=== PATIENT | male | born 1960 | race Caucasian/White ===

== ENCOUNTER 2018-07-13 15:30 | Inpatient (IN) ==
[2018-07-13] MEDS ORDERED: ZOFRAN IV PRN (16:59)
[2018-07-13] MEDS ORDERED: NS 1,000 ML IV SCH (17:00)
[2018-07-13 17:56] LABS: BASO# 0.01 X1000 (0.0-0.2); BASO% 0.2 % (0.0-0.8); EOS# 0.14 X1000 (0.0-0.7); EOS% 2.2 % (0.0-10.0); HEMATOCRIT 37.4 % (42.0-52.0); HEMOGLOBIN 13.2 g/dL (14.0-18.0); LYMPH# 1.72 X1000 (1.2-3.4); LYMPH% 26.8 % (20.5-51.1); MCH 33.7 PG (27-31); MCHC 35.3 g/dL (33-37); MCV 95.4 FL (81-99); MONO# 0.52 X1000 (0.11-0.59); MONO% 8.1 % (1.7-9.3); MPV 12.3 FL (7.4-10.4); NEUT# 4.03 X1000 (1.4-6.5); NEUT% 62.7 % (42.2-75.2); PLT 166 X1000 (130-400); RBC 3.92 XMIL (4.7-6.1); RDW 13.4 % (11.5-14.5); WBC 6.42 X1000 (4.8-10.8)
[2018-07-13 18:15] LABS: ALB/GLOB RATIO 1.3; ALBUMIN 3.7 g/dL (3.5-5.0); CALCIUM 9.4 mg/dL (8.8-10.2); CREATININE 3.4 mg/dL (0.7-1.2); POTASSIUM 5.4 mmol/L (3.5-5.1); TOTAL BILIRUBIN 0.55 mg/dL (0.20-1.00); TOTAL PROTEIN 6.5 g/dL (6.3-8.3)
[2018-07-13 18:30] LABS: FREE T4 1.67 ng/dL (0.93-1.70); TSH 0.04 uIUmL (0.27-4.20)
[2018-07-13] MEDS ORDERED: NS 500 ML IV ONE (19:39)
[2018-07-13] MEDS ORDERED: TYLENOL PO PRN (19:43)
[2018-07-13] MEDS: LOFIBRA PO SCH (21:24)
--- NOTE | 2018-07-13 21:39 | HISTORY AND PHYSICAL ---
PRIMARY CARE PHYSICIAN: Dr. iZ Man. CHIEF COMPLAINT: Diarrhea and near syncope. HISTORY OF PRESENT ILLNESS: A 57-year-old white male with a very complicated past medical history presents for evaluation of above-mentioned symptoms. Pertinent history of present illness began in May. At that time, patient was diagnosed with symptoms concerning for ischemic heart disease. The patient was referred for cardiology testing and subsequently required stent placement on June 03. At that time, medications were adjusted including increasing atorvastatin and adding Plavix therapy. The patient followed up with me in approximately 1 week. At that time, he complained of diarrhea beginning soon after stent placement. The patient also was noted to have significant upper respiratory symptoms. The patient was started on doxycycline. Upper respiratory illness improved. Unfortunately, diarrhea has persisted. Over the course of the last week, this has further increased. The patient describes stool as liquid and malodorous. He has had significant weight loss. Over the course of the last several days his blood pressure has been running significantly low. He has had multiple near syncopal episodes. He denies fevers, chills, nausea, vomiting, shortness of breath, chest discomfort, palpitations, hematochezia, melena, dysuria, hematuria, and pyuria. PAST MEDICAL HISTORY: 1. Abnormal electrocardiogram with nonspecific QRS widening and first-degree AV block. 2. Allergic rhinitis. 3. Multiple nevi. 4. Chronic cervical spine pain. 5. Colonic diverticulosis. 6. Longstanding tobacco use 7. Depression. 8. Diabetes. 9. Insomnia. 10. Transaminitis secondary to nonalcoholic fatty liver disease. 11. Reflux disease. 12. Hypertension. 13. Gout. 14. Ischemic heart disease. 15. Low HDL. 16. Chronic low back pain. 17. Obstructive sleep apnea. 18. History of thyroid nodule with negative uptake. 19. Osteoarthritis. 20. History of colonic polyps. 21. Hypertriglyceridemia. 22. Family history of ischemic heart disease. 23. Urinary frequency secondary to benign prostatic hypertrophy and bladder spasms. CURRENT MEDICATIONS: 1. Allopurinol 100 mg daily. 2. Amlodipine 5 mg twice daily. 3. Aspirin 81 mg daily. 4. Atorvastatin 20 mg at bedtime. 5. Bystolic 10 mg daily. 6. Duloxetine 60 mg daily. 7. Fenofibrate 160 mg at bedtime. 8. Flomax 0.4 mg daily. 9. Fluticasone nasal spray as needed. 10. Lisinopril/hydrochlorothiazide 20/12.5 two tablets daily. 11. Metamucil as needed. 12. [place] 7.5/325 twice daily. 13. Plavix 75 mg daily. 14. ProAir HFA as needed. ALLERGIES: Patient states he is allergic to Imdur which caused headaches and Mirapex which caused myalgias. SOCIAL HISTORY: The patient began smoking at age 18. He has averaged between 1/2 and 1 pack per day since that time. He denies alcohol or illicit drug use. He is on disability. He does not exercise routinely. FAMILY HISTORY: Patient's father passed at age 68 secondary to complications of coronary artery disease. He had a history of hyperlipidemia and hypertension. Patient's mother passed at age 73 secondary to complications of systemic lupus erythematosus. Two brothers passed secondary to acute myocardial infarctions at age 46 and 56. Another brother has end-stage renal disease. REVIEW OF SYSTEMS: A 12 point review of systems was performed. Pertinent positives and negatives are noted in history present illness. PHYSICAL EXAMINATION: Temperature 97.7 degrees, heart rate 61, respirations 16, blood pressure is 95/63. GENERAL: No acute distress. HEENT: Normocephalic, atraumatic. Pupils equal, round, reactive to light. Extraocular muscles intact. Sclerae anicteric. [place] conjunctivae. Oral and nasopharynx clear without exudate. NECK: Supple. No lymphadenopathy. No thyromegaly. No bruits auscultated. CARDIOVASCULAR: Regular rate and rhythm. No significant murmurs, rubs, or gallops. PULMONARY: Clear to auscultation bilaterally. ABDOMEN: Soft, nontender, nondistended. Positive bowel sounds. EXTREMITIES: Moves all extremities well. No significant clubbing, cyanosis, or edema. NEUROLOGIC: Cranial nerves 2-12 grossly intact. Motor and sensory grossly intact. PSYCHOLOGIC: Appropriate. LABORATORY DATA: White blood cell count 6.42, hemoglobin 13.2, hematocrit 37.4, platelet count 166,000. Sodium 130, potassium 5.4, chloride 100, bicarb 17, BUN 87, creatinine 3.4, glucose 163, calcium 9.4, total bilirubin 0.55, total protein 6.5, albumin 3.7, alkaline phosphatase 59, AST 72, ALT 82, TSH 0.04, free T4 is 1.67. ASSESSMENT AND PLAN: A 57-year-old white male with past medical history as noted presents for evaluation of intractable diarrhea and associated hypotension. He has had multiple near syncopal episodes. Laboratory data is significant for acute renal failure as well as hyperthyroid state. Patient will be admitted to the hospital for full evaluation and management of each of these conditions. 1. Admit to General Medicine. 2. Intractable diarrhea-question is raised as to the etiology. Symptoms started after stent placement and medication adjustments. These included increasing atorvastatin and starting Plavix therapy. Medication associated diarrhea is to be considered. Additionally, patient is at risk for Clostridium difficile as he has had antibiotics in the recent past. The patient's laboratory data is also significant for a suppressed TSH thus hyperthyroid may be playing a role. Additional intracolonic pathology will be also considered. We will start patient on IV fluids for replacement. We will hold patient's atorvastatin therapy. At this point, the risk of holding Plavix outweighs the benefits. We will check stool studies, including C difficile toxin, culture, and fecal leukocytes. Depending on patient's response, we will consider whether Gastroenterology consultation is appropriate. 3. Acute renal failure-patient's BUN and creatinine are significantly elevated. This likely is a consequence of his intractable diarrhea and volume loss. We will hold patient's ADRIEN inhibitor and diuretics. We will start patient on aggressive but cautious hydration. We will follow this closely. 4. Hypotension-this likely is a consequence of hypovolemia. We will aggressively but cautiously hydrate. We will hold the patient's antihypertensive agents. We will follow this. 5. Coronary artery disease-the patient has a recent diagnosis requiring stent placement. As above, we will continue his aspirin and Plavix. We will hold antihypertensive agents for now. We will continue fenofibrate, but hold atorvastatin. 6. Type 2 diabetes-we will treat patient with sliding scale insulin. 7. Suppressed TSH/hyperthyroidism-we will check a thyrotropin receptor antibody. We will determine if further intervention is warranted. 8. Chronic pain-at this point, continuing [place] is contraindicated secondary to hypotensive state. We will resume once able. 9. Fluid, electrolytes, nutrition. We will monitor electrolytes. Normal saline bolus followed by 75 mL an hour. Cardiac prudent diet. 10. Prophylaxis. Patient will be placed on SCDs. cc: Zi aMn MD
[2018-07-13] MEDS: NS 1,000 ML IV SCH (22:52)
[2018-07-14 02:37] LABS: URINE SOURCE CLEAN CATCH
[2018-07-14 02:50] LABS: BILIRUBIN URINE NEGATIVE (NEGATIVE); BLOOD URINE NEGATIVE (NEGATIVE); COLOR YELLOW; GLUCOSE URINE NEGATIVE (NEGATIVE); KETONE URINE NEGATIVE (NEGATIVE); LEUKOCYTES URINE NEGATIVE (NEGATIVE); NITRITE URINE NEGATIVE (NEGATIVE); PH URINE 5.5; PROTEIN URINE 100 mg/dL (NEGATIVE); SP GRAVITY URINE 1.008; TURBIDITY URINE CLEAR (CLEAR); UR EPITHELIAL CELLS <10 /HPF (<10); URINE BACTERIA NEGATIVE /HPF; URINE RBC <10 /HPF (<10); URINE WBC <10 /HPF (<10); UROBILINOGEN URINE NORMAL (NORMAL)
[2018-07-14 07:27] LABS: ALB/GLOB RATIO 1.5; ALBUMIN 3.9 g/dL (3.5-5.0); CALCIUM 9.1 mg/dL (8.8-10.2); CREATININE 3.2 mg/dL (0.7-1.2); POTASSIUM 4.9 mmol/L (3.5-5.1); TOTAL BILIRUBIN 0.55 mg/dL (0.20-1.00); TOTAL PROTEIN 6.5 g/dL (6.3-8.3)
[2018-07-14] MEDS: NS 1,000 ML IV SCH (08:44)
[2018-07-14] MEDS: ASPIRIN PO SCH (08:45)
[2018-07-14] MEDS: PLAVIX PO SCH (08:45)
[2018-07-14] MEDS: CYMBALTA PO SCH (08:45)
--- NOTE | 2018-07-14 20:07 | PROGRESS NOTE ---
DATE: 07/14/2018 SUBJECTIVE: The patient was admitted yesterday with intractable diarrhea, hypotension and acute renal failure. The patient was started on aggressive but cautious hydration. Medication adjustments including holding his atorvastatin therapy were made. Stool studies overnight suggested a negative Clostridium difficile toxin. Fecal white blood cells were rare. Occult blood was present. This morning the patient noted feeling somewhat improved. He noted a mild increase in energy. He had several bowel movements overnight. Through the course of the day, the patient was continued on supportive care. This evening, the patient states he is feeling further improved. He has not had a bowel movement since this morning. His blood pressure has improved considerably. He denies fevers, chills, nausea, vomiting, shortness of breath or chest discomfort. Oral intake has been adequate. OBJECTIVE: T-max 98.5 degrees, heart rate 58 to 65, respirations 18 to 20, blood pressure 78 to 121 over 49 to 69. General: Well nourished, well developed. No acute distress. Cardiovascular: Regular rate and rhythm. No significant murmurs, rubs or gallops. Pulmonary: Clear to auscultation bilaterally. Abdomen soft, nontender, nondistended. Positive bowel sounds. Extremities: Moves all extremities well. No significant clubbing, cyanosis or edema. Dermatologic evaluation reveals no evidence of rash. LABORATORY DATA: Sodium 129, potassium 4.9, chloride 100, bicarbonate 19, BUN 89, creatinine 3.2, glucose 87, calcium 9.1, total bilirubin 0.55, total protein 6.5, albumin 3.9, alkaline phosphatase 59, AST 75, ALT 86. ASSESSMENT AND PLAN: 1. Intractable diarrhea: As described above, Clostridium difficile toxin returned negative. Fecal white blood cells returned rare. Occult blood was present. At this point the differential diagnosis remains broad. We will continue to follow cultures. We will also remain aware that atorvastatin may be playing a role. With holding atorvastatin, his diarrhea has improved. We will also remain aware that hyperthyroidism also is on the differential. For now we will continue supportive care. We will treat additional diagnoses as described below. 2. Acute renal failure: The patient's creatinine has improved slightly. BUN, however, remains significantly elevated. We will continue the patient on intravenous fluids. We will continue to hold angiotensin-converting enzyme inhibitor and diuretics. Urine output is adequate. 3. Hypotension: The patient's antihypertensive agents have been held. With hydration, this is improving. 4. Coronary artery disease: The patient has significant disease. He is status post recent stenting. We will continue his aspirin and Plavix. Atorvastatin has been held, as I am concerned this may be precipitating diarrhea. 5. Type 2 diabetes: We will continue the patient on sliding scale insulin. 6. Suppressed TSH/hyperthyroidism: Thyrotropin receptor antibody is pending. We will determine if further intervention is warranted. 7. Chronic pain: [place] is contraindicated in the setting of hypotension. We will plan to resume this once able. 8. Prophylaxis: The will be continued on sequential compression devices. 9. Disposition: At this point, the patient continues to require senior living care in a hospital setting. We will plan discharge home once appropriate. cc: Zi Man MD
[2018-07-14] MEDS: LOFIBRA PO SCH (21:12)
[2018-07-15 06:56] LABS: BASO# 0.02 X1000 (0.0-0.2); BASO% 0.3 % (0.0-0.8); EOS# 0.15 X1000 (0.0-0.7); EOS% 2.3 % (0.0-10.0); HEMATOCRIT 37.5 % (42.0-52.0); IMM GRAN# 0.02 X1000 (0.0-0.04); IMM GRAN% 0.3 % (0.0-0.5); LYMPH# 2.08 X1000 (1.2-3.4); LYMPH% 31.7 % (20.5-51.1); MCH 32.5 PG (27-31); MCHC 34.7 g/dL (33-37); MCV 93.8 FL (81-99); MONO# 0.74 X1000 (0.11-0.59); MONO% 11.3 % (1.7-9.3); MPV 12.1 FL (7.4-10.4); NEUT# 3.55 X1000 (1.4-6.5); NEUT% 54.1 % (42.2-75.2); PLT 140 X1000 (130-400); RDW 13.4 % (11.5-14.5); WBC 6.56 X1000 (4.8-10.8)
[2018-07-15 07:28] LABS: ALB/GLOB RATIO 1.4; CALCIUM 9.5 mg/dL (8.8-10.2); CREATININE 2.1 mg/dL (0.7-1.2); POTASSIUM 5.9 mmol/L (3.5-5.1); TOTAL BILIRUBIN 0.58 mg/dL (0.20-1.00); TOTAL PROTEIN 6.9 g/dL (6.3-8.3)
[2018-07-15] MEDS: ASPIRIN PO SCH (09:01)
[2018-07-15] MEDS: CYMBALTA PO SCH (09:01)
[2018-07-15] MEDS: PLAVIX PO SCH (09:01)
[2018-07-15] MEDS: NS 1,000 ML IV SCH ×5 (09:05→22:44)
[2018-07-15 09:36] LABS: ALB/GLOB RATIO 1.5; ALBUMIN 4.3 g/dL (3.5-5.0); CALCIUM 9.6 mg/dL (8.8-10.2); CREATININE 1.9 mg/dL (0.7-1.2); POTASSIUM 5.5 mmol/L (3.5-5.1); TOTAL BILIRUBIN 0.57 mg/dL (0.20-1.00); TOTAL PROTEIN 7.1 g/dL (6.3-8.3)
--- NOTE | 2018-07-15 12:50 | Diag Imaging Result Doc PS360 ---
EXAM: US ABDOMEN-COMPLETE HISTORY: Transaminitis/ persistent diarrhea TECHNIQUE: Abdominal ultrasound COMPARISON: None. FINDINGS: Normal pancreatic body. Pancreatic head and tail are obscured. No abdominal aortic aneurysm. Normal inferior vena cava. There is fatty infiltration of the liver. Normal gallbladder. No stones. The common bile duct measures 5 mm. Normal kidneys. No hydronephrosis. No ascites. Normal spleen. IMPRESSION: Fatty infiltration of the liver Electronically signed by Soy Boucher 07/15/2018 12:48 PM
[2018-07-15 16:30] LABS: ALB/GLOB RATIO 1.5; CALCIUM 9.4 mg/dL (8.8-10.2); CREATININE 1.7 mg/dL (0.7-1.2); POTASSIUM 5.3 mmol/L (3.5-5.1); TOTAL BILIRUBIN 0.59 mg/dL (0.20-1.00); TOTAL PROTEIN 6.7 g/dL (6.3-8.3)
--- NOTE | 2018-07-15 17:55 | GASTROENTEROLOGY CONSULTATION ---
DATE: 07/15/2018 REASON FOR CONSULTATION: Diarrhea, elevated liver function tests. HISTORY OF PRESENT ILLNESS: This is a 57-year-old male who has been seen once by Dr. Griffiths for a colonoscopy. Had a colonoscopy in May of 2017 that showed colon polyps and diverticulosis. Pathology has shown hyperplastic polyps and he was recommended to have a follow- up colonoscopy in 5 years. Patient reports onset of his current symptoms started mid-May. He was admitted to the hospital at [facility] and had cardiovascular stent placed. He was started on medications including cholesterol medication, aspirin, and Plavix. Patient states not long after this he started having diarrhea that has progressively worsened. He is reported about a 50 pounds weight loss since May. Not long after a stent placement he also had an upper respiratory infection and was treated with antibiotics. Patient had reported approximately 5 to 6 loose stools daily but over the last week, it has worsened and at 1 point he had up to 15 loose stools. He denies blood or mucus in the stool. No reported fever. No reported nausea and vomiting. Reports some abdominal cramping. He had reported near syncopal episodes. On evaluation, he had low blood pressure and abnormal kidney function. Patient was also noted to have elevated liver function tests, including AST and ALT with a normal bilirubin and alkaline phosphatase. PAST MEDICAL HISTORY: Coronary artery disease with recent cardiovascular stents placed in May of 2018, diabetes, depression, GERD, hypertension, gout, chronic pain, obstructive sleep apnea, osteoarthritis, hypertriglyceridemia, reported history of elevated liver function tests in the past with diagnosis of fatty liver disease. PAST SURGICAL HISTORY: He has had knee surgeries x2, shoulder surgery, neck surgery, back surgery, cardiovascular stents placed in May of 2018. ALLERGIES: Mirapex causing swelling. HOME MEDICATIONS: Allopurinol 100 mg daily, amlodipine 5 mg twice a day, aspirin 81 mg daily, Atorvastatin 20 mg every night, Bystolic 10 mg daily, duloxetine 60 mg daily, fenofibrate 160 mg at night, Flomax 0.4 mg daily, fluticasone nasal spray as needed, lisinopril/hydrochlorothiazide 20/12.5 2 tablets daily, Metamucil as needed, [place] 7.5/325 mg twice daily, Plavix 75 mg daily, ProAir inhaler as needed. SOCIAL HISTORY: Positive for tobacco use, 1/2 to 1 pack daily. Denies alcohol use. He is on disability. He is . FAMILY HISTORY: Father at 68 secondary to coronary artery disease. Mother at 73 related to lupus. He has 2 brothers that passed secondary to acute myocardial infarctions at age 46 and 56. He has 1 brother with end-stage renal disease. REVIEW OF SYSTEMS: Per history of present illness. PHYSICAL EXAMINATION: Vital Signs: Temperature 98.4 degrees, pulse 64, respirations 20, blood pressure 125/56. General: Patient is awake, alert, in no acute distress. His is at the bedside. HEENT: Normocephalic, atraumatic. Pupils equal, round, reactive to light. Sclerae nonicteric. Cardiovascular: Regular rate and rhythm. Respiratory: Lung sounds essentially clear bilaterally. Abdomen: Soft. Positive bowel sounds. Nontender. Extremities: No lower extremity edema noted. DIAGNOSTIC RESULTS: Laboratory: Hematology: WBC 6.56, hemoglobin 13.0, hematocrit 37.5, MCV 93.8, platelet 140,000. Chemistry: Sodium 136, potassium 5.5, chloride 108, CO2 16, BUN 69, creatinine 1.9, glucose 100. Total bilirubin 0.57, AST 111, ALT 114, alkaline phosphatase 65. TSH 0.04, free T4 1.67. Immunology studies: Thyrotropin receptor antibody less than 1.0. Abdominal ultrasound showed fatty infiltration of the liver, otherwise no acute findings. ASSESSMENT AND PLAN: 1. Diarrhea. 2. Coronary artery disease with recent cardiovascular stents placed in May. Patient's diarrhea started after stent placement. Currently they are holding his atorvastatin. 3. Acute renal failure. The patient had elevated BUN and creatinine which has improved with IV fluids. 4. Hypotension with near syncopal episodes. The patient antihypertensive medications have been held. 5. Low thyroid stimulating hormone with normal free T4. Thyrotropin receptor antibody was normal. Continue to follow per Dr. Man. 6. Elevated AST and ALT, ultrasound findings of fatty liver disease. We will proceed with further workup including autoimmune studies and hepatitis panel. Continue to monitor liver function tests. We will continue to monitor, follow up on lab results, and further plans will be made as needed. I have discussed this case with Dr. Griffiths. Dictated by ERIS Fulton for Bill Griffiths MD cc: Bre Mcclendon, MD Zi Reynoso MD
--- NOTE | 2018-07-15 20:39 | PROGRESS NOTE ---
DATE: 07/15/2018 SUBJECTIVE: The patient was admitted with intractable diarrhea and associated acute renal failure. The patient has been treated with IV hydration and supportive care. Stool cultures have returned negative. Clostridium difficile toxin returned negative. Fecal white blood cells returned few, and Hemoccult returned positive. The patient initially did reasonably well, but overnight he developed a significant recurrence. The patient notes having multiple episodes of diarrhea through the night. This morning the patient noted weakness, but was feeling reasonably well. This evening, the patient's condition is unchanged. He has had persistent diarrhea throughout the day. He denies fevers, chills, nausea, vomiting, shortness of breath or chest discomfort. Urine output is adequate. OBJECTIVE: T-max 98.4 degrees, heart rate 59 to 68, respirations 16 to 20. Blood pressure 113 to 130 over 56 to 64. General: Well nourished, well developed, no acute distress. Cardiovascular: Regular rate and rhythm. No significant murmurs, rubs or gallops. Pulmonary: Clear to auscultation bilaterally. Abdomen soft, nontender, nondistended. Positive bowel sounds. Extremities: Moves all extremities well. No significant clubbing, cyanosis or edema. Dermatologic evaluation reveals no evidence of rash. LABORATORY DATA: White blood cell count 6.56, hemoglobin 13.0, hematocrit 37.5, platelet count is 140,000. Sodium 131,potassium 5.3, chloride 104, bicarbonate 15, BUN 63, creatinine 1.7, glucose 87, calcium 9.4, total bilirubin 0.59, total protein 6.7, albumin 4.0, alkaline phosphatase 62, AST 108, ALT 113. ASSESSMENT AND PLAN: 1. Intractable diarrhea: As above, stool studies have returned positive only for a few leukocytes and Hemoccult. Differential diagnoses include a primary gastrointestinal pathology as well as the possibility of medication-associated. Symptoms started after increasing atorvastatin to 80 mg daily and Plavix therapy. At this point the risk of stopping Plavix outweighs the benefits. We will continue this. Atorvastatin has been held. We will consult Dr. Griffiths for further assistance. 2. Acute renal failure: The patient's creatinine continues to improve with hydration. We will continue his current intravenous replacement. 3. Hyperkalemia: This is quite curious. I suspect this is secondary to his acute renal failure. I cannot fully rule out an underlying renal tubular acidosis. At this point we will continue supportive care. We will hold his angiotensin-converting enzyme inhibitor and diuretics. 4. Hypotension: The patient has achieved improvement with hydration. We will continue to hold his antihypertensive agents. 5. Coronary artery disease: The patient is status post recent stent placement. As above, we will hold atorvastatin therapy. We will continue aspirin and Plavix. He denies chest discomfort currently. 6. Transaminitis: Once again, this is quite curious. Atorvastatin has been held. We will hold fenofibrate as well. Abdominal ultrasound today returned only with fatty infiltration of the liver. We will follow along with Dr. Griffiths. 7. Type 2 diabetes: We will continue the patient on sliding scale insulin. 8. Suppressed TSH/hyperthyroidism: Thyrotropin receptor antibody returned negative. At this point this likely is reactive. We will remain aware. 9. Chronic pain: The patient's [place] has been contraindicated in the setting of hypotension. With improvement in his blood pressure, we will resume tonight. 10. Prophylaxis: The patient will be continued on sequential compression devices. 11. Disposition: At this point the patient continues to require senior living care in a hospital setting. We will plan discharge home once appropriate. cc: Zi Man MD
[2018-07-15] MEDS: NORCO-7.5 PO SCH (22:45)
[2018-07-16] MEDS: NS 1,000 ML IV SCH ×4 (02:42→21:40)
[2018-07-16 07:07] LABS: BASO# 0.02 X1000 (0.0-0.2); BASO% 0.3 % (0.0-0.8); EOS# 0.13 X1000 (0.0-0.7); HEMATOCRIT 37.3 % (42.0-52.0); LYMPH# 1.92 X1000 (1.2-3.4); LYMPH% 29.3 % (20.5-51.1); MCH 32.7 PG (27-31); MCHC 34.9 g/dL (33-37); MCV 93.7 FL (81-99); MONO# 0.74 X1000 (0.11-0.59); MONO% 11.3 % (1.7-9.3); MPV 11.6 FL (7.4-10.4); NEUT# 3.74 X1000 (1.4-6.5); NEUT% 57.1 % (42.2-75.2); PLT 129 X1000 (130-400); RBC 3.98 XMIL (4.7-6.1); RDW 13.4 % (11.5-14.5); WBC 6.55 X1000 (4.8-10.8)
[2018-07-16 07:48] LABS: ALB/GLOB RATIO 1.4; CALCIUM 9.5 mg/dL (8.8-10.2); CREATININE 1.8 mg/dL (0.7-1.2); TOTAL BILIRUBIN 0.6 mg/dL (0.20-1.00); TOTAL PROTEIN 6.8 g/dL (6.3-8.3)
--- NOTE | 2018-07-16 08:51 | GASTROENTEROLOGY PROGRESS NOTE ---
DATE: 07/16/2018 SUBJECTIVE: Mr. Leiva continues to have diarrhea. Since waking up this morning, he has had 4 loose watery stools already. He complains of significant nausea and abdominal discomfort associated with the loose bowel movements. He denies any blood or mucus in his stool. OBJECTIVE: Vital signs: Temperature 97.7 degrees, pulse 61, breathing 16, blood pressure 146/64. Abdomen: Obese, soft, but nontender. Bowel sounds audible. Extremities: No pedal edema noted. LABORATORY DATA: Reviewed. Hemoglobin and hematocrit stays stable. Electrolytes: Sodium 136, potassium 5.0, chloride 107, bicarb 16 with BUN of 55, creatinine 1.8. AST 113, ALT 113. Total bilirubin and alkaline phosphatase were normal. IMPRESSION AND PLAN: Diarrhea. Etiology remains elusive. He has had significant loose bowel movements resulting in metabolic acidosis as well as electrolyte imbalances. His white count remains normal. The picture is suggestive of possible infectious etiology since it has also caused some transaminitis but so far, results have been negative. I will order a GI panel from [facility] to identify the bug. Possibly virus. In the meantime, I will start him on [place] 1 to 2 p.o. t.i.d. p.r.n. diarrhea, continued to follow. I will also advised him to avoid milk, cheese and caffeinated drinks for the time being. Further plans made according to the progress. cc: MD Zi Murphy MD MTDD
[2018-07-16] MEDS: NORCO-7.5 PO SCH ×2 (09:53→21:39)
[2018-07-16] MEDS: PLAVIX PO SCH (09:56)
[2018-07-16] MEDS: ASPIRIN PO SCH (09:56)
[2018-07-16] MEDS: CYMBALTA PO SCH (09:56)
[2018-07-16] MEDS: LOMOTIL PO PRN ×2 (09:56→15:28)
--- NOTE | 2018-07-16 20:33 | PROGRESS NOTE ---
DATE: 07/16/2018 SUBJECTIVE: This morning patient complained of persistent loose stools throughout the night. The patient's energy level is improved upon admission but remains lower than baseline. Medications were adjusted by Dr. Griffiths. This evening, patient notes a considerable decrease in his frequency of diarrhea. He has had no evidence of fevers, chills, nausea, vomiting, shortness of breath, or chest discomfort. P.o. intake is slowly improving. OBJECTIVE: Vital signs: T-max is 98.8 degrees, heart rate 61 to 74, respirations 16 to 20, blood pressure 137 to 146 over 64 to 81. General: Well nourished, well developed, no acute distress. Cardiovascular: Regular rate and rhythm. No significant murmurs, rubs, or gallops. Pulmonary: Clear to auscultation bilaterally. Abdomen: Soft, nontender, nondistended. Positive bowel sounds. Extremities: Moves all extremities well. No significant clubbing, cyanosis, or edema. Dermatologic: Evaluation reveals no evidence of rash. LABORATORY DATA: White blood cell count 6.55, hemoglobin 13.0, hematocrit 37.3, platelet count 129,000, sodium 136, potassium 5.0, chloride 107, bicarb 16, BUN 55, creatinine 1.8, glucose 89, calcium 9.5, total bilirubin 0.60, total protein 6.8, albumin 4.0, alkaline phosphatase 61, AST 113, ALT 113. ASSESSMENT AND PLAN: 1. Intractable diarrhea--stool studies have revealed only Hemoccult-positive stools and rare leukocytes. Culture and C difficile toxin returned negative. I appreciate Dr. Griffiths's consultation. Medication adjustments have been made with some improvement. We will follow along. 2. Acute renal failure--the patient's creatinine continues to improve with hydration. We will continue to hold his diuretic and ADRIEN inhibitor. 3. Hyperkalemia--the patient's potassium is improving with hydration. Once again, we will continue to hold ADRIEN inhibitor. 4. Hypotension--the patient has achieved improvement. We will continue to hold his antihypertensive agents. We will plan to resume these once appropriate. 5. Coronary artery disease--patient is status post recent stent placement. We will continue aspirin and Plavix therapy. His atorvastatin and fenofibrate have been held in the setting of transaminitis. We will remain aware. 6. Transaminitis--multiple labs have been ordered per Dr. Griffiths. For now, we will continue to hold atorvastatin therapy and fenofibrate. Abdominal ultrasound returned with only fatty infiltration of the liver. 7. Type 2 diabetes--we will continue patient on sliding scale insulin. 8. Suppressed TSH/hyperthyroidism--patient's thyrotropin receptor antibody returned negative. T3 returned negative. At this point, I suspect this is reactive with his acute illness. We will plan to follow this as an outpatient. 9. Chronic pain--patient's [place] has been resumed. We will encourage activity. 10. Disposition--At this point, patient continues to require custodial care in a hospital setting. We will plan discharge home once appropriate. cc: Zi Man MD
[2018-07-17] MEDS: LOMOTIL PO PRN (02:52)
[2018-07-17 06:43] LABS: BASO# 0.03 X1000 (0.0-0.2); BASO% 0.4 % (0.0-0.8); EOS# 0.22 X1000 (0.0-0.7); EOS% 3.1 % (0.0-10.0); HEMATOCRIT 37.5 % (42.0-52.0); HEMOGLOBIN 13.1 g/dL (14.0-18.0); LYMPH# 2.07 X1000 (1.2-3.4); LYMPH% 29.2 % (20.5-51.1); MCH 32.6 PG (27-31); MCHC 34.9 g/dL (33-37); MCV 93.3 FL (81-99); MONO# 0.73 X1000 (0.11-0.59); MONO% 10.3 % (1.7-9.3); MPV 11.7 FL (7.4-10.4); NEUT# 4.05 X1000 (1.4-6.5); PLT 141 X1000 (130-400); RBC 4.02 XMIL (4.7-6.1); RDW 13.2 % (11.5-14.5)
[2018-07-17 07:06] LABS: ALB/GLOB RATIO 1.4; ALBUMIN 3.8 g/dL (3.5-5.0); CALCIUM 9.2 mg/dL (8.8-10.2); CREATININE 1.6 mg/dL (0.7-1.2); POTASSIUM 5.2 mmol/L (3.5-5.1); TOTAL BILIRUBIN 0.49 mg/dL (0.20-1.00); TOTAL PROTEIN 6.6 g/dL (6.3-8.3)
[2018-07-17] MEDS: PLAVIX PO SCH (09:21)
[2018-07-17] MEDS: CYMBALTA PO SCH (09:22)
[2018-07-17] MEDS: ASPIRIN PO SCH (09:22)
[2018-07-17] MEDS: NORCO-7.5 PO SCH (09:22)
[2018-07-17 13:10] LABS: HEPATITIS PROFILE ACUTE SEE COMMENTS
--- NOTE | 2018-07-17 14:04 | GASTROENTEROLOGY PROGRESS NOTE ---
DATE: 07/17/2018 SUBJECTIVE: The patient is awake and alert. No acute distress. At the time of my evaluation, he states he has had 1 diarrhea stool around 2:30 a.m. He has had less abdominal pain. OBJECTIVE: Vital Signs: Temperature 98 degrees, pulse 63, respirations 20, blood pressure 133/65. LABORATORY: Hematology: WBC 7.10, hemoglobin 13.1, hematocrit 37.5, MCV 93.3, platelets 141,000. Chemistry: Sodium 135, potassium 5.2, chloride 108, BUN 40, creatinine 1.6, glucose 93, total bilirubin 0.49, AST 112, ALT 118, alkaline phosphatase 60. Immunology: TAYLOR test was negative. Ceruloplasmin 31.4. Some studies still pending. Stool: GI panel sent to [facility], is pending. ASSESSMENT AND PLAN: Diarrhea. Continuing with workup. Waiting on some lab results. He was started on Lomotil yesterday. Advised to avoid milk and dairy products. Avoid caffeinated drinks. Avoid artificial sweeteners for now. Will continue to follow. Further plans to be made according to progress. I have discussed this case with Dr. Griffiths. Dictated by ERIS Fulton for Bill Griffiths MD cc: ERIS Jaramillo MD Scott A. Matthews, MD
[2018-07-17 15:28] LABS: ALB/GLOB RATIO 1.5; ALBUMIN 3.8 g/dL (3.5-5.0); CREATININE 1.6 mg/dL (0.7-1.2); POTASSIUM 5.1 mmol/L (3.5-5.1); TOTAL BILIRUBIN 0.36 mg/dL (0.20-1.00); TOTAL PROTEIN 6.4 g/dL (6.3-8.3)
[2018-07-17 15:36] VITALS: BP 121/64
--- NOTE | 2018-07-17 21:33 | DISCHARGE SUMMARY ---
ADMISSION DATE: 07/13/2018 DISCHARGE DATE: 07/17/2018 ADMISSION DIAGNOSES: 1. Diarrhea. 2. Near syncope. DISCHARGE DIAGNOSES: 1. Intractable diarrhea, improving. 2. Acute renal failure, improving. 3. Hyperkalemia, improving. 4. Hypotension, improving. 5. Coronary artery disease, present on arrival. 6. Transaminitis, stable. 7. Type 2 diabetes, present on arrival. 8. Suppressed TSH/hyperthyroidism. 9. Chronic pain, present on arrival. CONSULTATIONS: Dr. Griffiths with Gastroenterology was consulted for further evaluation and management of intractable diarrhea and transaminitis. PROCEDURES: Abdominal ultrasound was performed on 07/13/2018 which revealed fatty infiltration of the liver. HISTORY AND PHYSICAL EXAMINATION: See admit note. PHYSICAL EXAMINATION PRIOR TO DISCHARGE: Temperature 98.2 degrees, heart rate 68, respirations 16, blood pressure 121/64. General: Well nourished, well developed, no acute distress. HEENT: Normocephalic, atraumatic. Pupils equal, round, react to light. Extraocular muscles intact. Sclerae anicteric. [place] conjunctivae. Oral and nasopharynx clear without exudate. Cardiovascular: Regular rate and rhythm. No significant murmurs, rubs, or gallops. Pulmonary: Clear to auscultation bilaterally. Abdomen: Soft, nontender, nondistended. Positive bowel sounds. Extremities: Moves all extremities well. No significant clubbing, cyanosis, or edema. Dermatologic: Evaluation reveals no evidence of rash. LABORATORY DATA: Prior to discharge. White blood cell count 7.10, hemoglobin 13.1, hematocrit 37.5, platelet count 141,000. Sodium 130, potassium 5.1, chloride 103, bicarb 17, BUN 41, creatinine 1.6, glucose 88, calcium 9.0, total bilirubin 0.36, total protein 6.4, albumin 3.8, alkaline phosphatase 61, AST 98, ALT 111. HOSPITAL COURSE: Patient was admitted as per history and physical examination. Hospital course per condition is as follows. 1. Intractable diarrhea-upon admission, patient was noted to have intractable diarrhea. Stool culture and C. difficile toxin returned negative. Hemoccult returned positive. Fecal leukocytes returned rare. Dr. Griffiths was consulted for further evaluation and management. A battery of labs have been sent. With the addition of Lomotil therapy, patient's overall condition has improved considerably. We will continue as needed Lomotil as an outpatient. 2. Acute renal failure-upon admission, patient was noted to have a significant renal failure with a creatinine of 3.4. With hydration and medication adjustments, creatinine improved to 1.6 at discharge. We will encourage hydration as an outpatient. We will follow this up next week. 3. Hyperkalemia-while hospitalized, patient's potassium has been slightly elevated. At time of discharge, his potassium was at the upper limits of normal. His ADRIEN inhibitor has been held. Nephrotoxic agents have been discontinued. We will continue to encourage hydration as an outpatient. He is to avoid foods and drinks high in potassium. We will recheck a level on Friday. 4. Hypotension-upon admission, patient was noted to be hypotensive. Blood pressure medications were held. IV hydration was initiated. At time of discharge, patient's blood pressure was reasonably controlled without antihypertensive intervention. We will discharge patient with the addition of Bystolic. We will follow this closely as an outpatient as well. 5. Coronary artery disease-patient is status post recent stent placement. His aspirin and Plavix were continued throughout hospitalization. Fenofibrate and atorvastatin have been held secondary to transaminitis as described below. Antihypertensive intervention has also been held. We will plan to resume medications as tolerated. He is chest pain free at present time. 6. Transaminitis-the patient has had a persistent transaminitis while hospitalized. Ultrasound revealed only fatty infiltration of the liver. We will continue to hold hepatic toxic agents. We will recheck this as an outpatient next week. We will need to arrange followup with Dr. Griffiths at that time. 7. Type 2 diabetes-the patient was covered with sliding scale insulin while hospitalized. Blood sugars remain reasonably controlled. 8. Suppressed TSH/hyperthyroidism-interestingly, patient's thyrotropin receptor antibody returned negative. T3 also was within normal limits. At this point, this may be reactive. We will follow this as an outpatient as well. 9. Chronic pain-once patient's blood pressure could tolerate, [place] therapy was resumed. We will continue this as an outpatient. DISCHARGE CONDITION: Good. DISPOSITION: Discharged to home. MEDICATIONS: 1. Cymbalta 60 mg daily. 2. Lomotil 1 to 2 tablets 3 times daily as needed. 3. Aspirin 81 mg daily. 4. Plavix 75 mg daily. 5. Flonase 2 sprays each nostril daily as needed. 6. [place] 7.5/325 twice daily. 7. Bystolic 10 mg daily for systolic blood pressure greater than 140. 8. Flomax 0.4 mg daily. 9. ProAir HFA 1 to 2 puffs every 4-6 hours as needed. 10. Allopurinol 100 mg daily. 11. Patient has been instructed to discontinue amlodipine, atorvastatin, fenofibrate, lisinopril/hydrochlorothiazide. FOLLOWUP: 1. The patient is to follow up with me on Friday. 2. The patient is to follow up with Dr. Griffiths as arranged. cc: Zi Man MD
== END 2018-07-17 19:06 | disposition home or self-care (01) | DRG 683 ==
LOC: DIRADM 15:30 → 4N 16:31
PROVIDERS: ADMIT Internal Medicine; ATTEND Internal Medicine
CPT/HCPCS: 76700; 80053; 80074; 81001; 82103; 82270; 82390; 82533; 82941; 83516; 83519; 83520; 84439; 84443; 84480; 84481; 85025; 85651; 86038; 86039; 86255; 87040; 87045; 87046; 87205; 87324; 87493; 89055; 94761; 99999; A9270; J7030; J7040